=== PATIENT | male | born 1945 ===

== ENCOUNTER 2025-01-23 11:45 | Inpatient (IN) | payer BC ==
[2025-01-23 12:05] LABS: BASOPHILS ABSOLUTE AUTO 0.04 K/uL (0.00-0.20); BASOPHILS PERCENT AUTO 0.7 % (0.0-2.0); EOSINOPHILS PERCENT AUTO 3.7 % (0.0-5.0); HEMATOCRIT 27.2 % (39.0-49.0); HEMOGLOBIN 8.7 g/dL (13.1-16.8); IMMATURE GRAN ABSOLUTE AUTO 0.01 10^3/uL (0.00-0.04); IMMATURE GRAN PERCENT AUTO 0.2 % (0.0-0.4); LYMPHOCYTES ABSOLUTE AUTO 0.84 K/uL (0.50-3.50); LYMPHOCYTES PERCENT AUTO 15.6 % (10.0-50.0); MEAN CORPUSCULAR HEMOGLOBIN 31.8 pg (28.2-33.3); MEAN CORPUSCULAR VOLUME 99.3 fL (84.0-98.0); MONOCYTES ABSOLUTE AUTO 0.44 K/uL (0.00-1.00); MONOCYTES PERCENT AUTO 8.2 % (2.0-14.0); NEUTROPHILS ABSOLUTE AUTO 3.84 K/uL (1.40-7.00); NEUTROPHILS PERCENT AUTO 71.6 % (45.0-80.0); PLATELET COUNT,PLT 151 K/uL (150-350); RED BLOOD CELL COUNT 2.74 M/uL (4.33-5.41); RED CELL DISTRIBUTION WIDTH 12.5 % (11.2-14.1); WHITE BLOOD CELL COUNT,WBC 5.4 K/uL (4.0-10.2)
[2025-01-23 12:08] LABS: O2 DELIVERY DEVICE NASAL CANNULA; O2 SATURATION VENOUS 93 %; PCO2 VENOUS 38 mmHG (41-51); PH,VENOUS 7.51 (7.31-7.41); PO2 VENOUS 60 mmHG
[2025-01-23 12:09] LABS: BASE EXCESS VENOUS 7 mmol/L ((-2)-3); BICARBONATE,VENOUS 30 mmol/L (23-28)
[2025-01-23] MEDS: Albuterol/Ipratropium 3.0-0.5 MG/3 ML Neb Soln NEB ONE (12:13)
[2025-01-23] MEDS: Furosemide 40 MG/4 ML VIAL IVPUSH ONE (12:14)
[2025-01-23 12:35] LABS: LACTIC ACID 0.6 mmol/L (0.4-2.0)
[2025-01-23 12:52] LABS: ALBUMIN 3.3 g/dL (3.4-5.0); ANION GAP 12.4 meq/L (7-15); BILIRUBIN TOTAL 0.7 mg/dL (0.2-1.0); CALCIUM 9.1 mg/dL (8.5-10.1); CARBON DIOXIDE,CO2 24.6 mmol/L (21.0-32.0); CREATININE 2.22 mg/dL (0.51-1.17); EST CRCL DRUG DOSING (CG) 24.75 mL/min; POTASSIUM,K 4.3 mmol/L (3.5-5.1)
[2025-01-23] MEDS ORDERED: Ondansetron 4 MG Tab.DIS PO PRN (13:43)
[2025-01-23] MEDS ORDERED: Acetaminophen 325 MG Tab PO PRN (13:43)
[2025-01-23] MEDS ORDERED: Bisacodyl 5 MG Tab PO PRN (13:43)
[2025-01-23] MEDS ORDERED: traMADol 50 MG Tab PO PRN (13:43)
[2025-01-23] MEDS: Albuterol/Ipratropium 3.0-0.5 MG/3 ML Neb Soln NEB SCH (14:16)
[2025-01-23] MEDS: Benzonatate 100 MG Cap PO PRN (14:16)
[2025-01-23] MEDS: cefTRIAXone 1 GM Vial IVPUSH SCH (14:16)
[2025-01-23] MEDS: Azithromycin 500 MG in Sodium Chloride 0.9% 250 ML IV SCH (14:39)
[2025-01-23] MEDS: glipiZIDE 5 MG Tab PO SCH (17:31)
[2025-01-23] MEDS: Carvedilol 25 MG Tab PO SCH (17:32)
[2025-01-23] MEDS: Sodium Bicarbonate 650 MG Tab PO SCH (17:53)
[2025-01-24] MEDS: Temazepam 15 MG Cap PO PRN (00:05)
[2025-01-24 07:19] LABS: BASOPHILS ABSOLUTE AUTO 0.05 K/uL (0.00-0.20); BASOPHILS PERCENT AUTO 0.8 % (0.0-2.0); EOSINOPHILS ABSOLUTE AUTO 0.23 K/uL (0.00-0.50); EOSINOPHILS PERCENT AUTO 3.8 % (0.0-5.0); HEMOGLOBIN 8.2 g/dL (13.1-16.8); IMMATURE GRAN ABSOLUTE AUTO 0.01 10^3/uL (0.00-0.04); IMMATURE GRAN PERCENT AUTO 0.2 % (0.0-0.4); LYMPHOCYTES ABSOLUTE AUTO 1.03 K/uL (0.50-3.50); LYMPHOCYTES PERCENT AUTO 16.8 % (10.0-50.0); MEAN CORPUSCULAR HEMOGLOBIN 30.9 pg (28.2-33.3); MEAN CORPUSCULAR HGB CONC 31.5 g/dL (31.7-36.0); MEAN CORPUSCULAR VOLUME 98.1 fL (84.0-98.0); MONOCYTES ABSOLUTE AUTO 0.48 K/uL (0.00-1.00); MONOCYTES PERCENT AUTO 7.8 % (2.0-14.0); NEUTROPHILS ABSOLUTE AUTO 4.33 K/uL (1.40-7.00); NEUTROPHILS PERCENT AUTO 70.6 % (45.0-80.0); PLATELET COUNT,PLT 162 K/uL (150-350); RED BLOOD CELL COUNT 2.65 M/uL (4.33-5.41); RED CELL DISTRIBUTION WIDTH 12.5 % (11.2-14.1); WHITE BLOOD CELL COUNT,WBC 6.1 K/uL (4.0-10.2)
[2025-01-24 07:41] LABS: ANION GAP 6.8 meq/L (7-15); CARBON DIOXIDE,CO2 30.2 mmol/L (21.0-32.0); CREATININE 2.16 mg/dL (0.51-1.17); EST CRCL DRUG DOSING (CG) 25.43 mL/min; POTASSIUM,K 3.9 mmol/L (3.5-5.1)
[2025-01-24] MEDS: Clopidogrel 75 MG Tab PO SCH (08:07)
[2025-01-24] MEDS: Ferrous Sulfate 325 MG Tab PO SCH (08:08)
[2025-01-24] MEDS: Aspirin 81 MG Tab.EC PO SCH (08:09)
[2025-01-24] MEDS: amLODIPine 5 MG Tab PO SCH (08:10)
[2025-01-24] MEDS: atorvaSTATin 40 MG Tab PO SCH (08:10)
[2025-01-24] MEDS: Furosemide 40 MG/4 ML VIAL IVPUSH SCH (08:14)
[2025-01-24] MEDS: Fluticasone NASAL Spray 16 GM Bottle NASBOTH SCH (08:26)
[2025-01-24] MEDS ORDERED: Albuterol/Ipratropium 3.0-0.5 MG/3 ML Neb Soln NEB PRN (11:27)
[2025-01-24] MEDS: predniSONE 20 MG Tab PO ONE (13:00)
[2025-01-24 13:19] VITALS: BP 140/53; PULSE 58
[2025-01-24] MEDS ORDERED: Furosemide 40 MG/4 ML VIAL IVPUSH ONE (18:00)
== END 2025-01-24 13:08 | DRG 133 ==
LOC: LL.ED 11:45 → LL.MS 12:45
PROVIDERS: ADMIT Emergency Medicine; ATTEND Emergency Medicine
DX: J96.01 Acute respiratory failure with hypoxia (principal); J30.9 Allergic rhinitis, unspecified; H54.7 Unspecified visual loss; Z66 Do not resuscitate; E11.319 Type 2 diabetes mellitus with unspecified diabetic retinopathy without macular edema; Z51.5 Encounter for palliative care; I25.10 Atherosclerotic heart disease of native coronary artery without angina pectoris; E78.00 Pure hypercholesterolemia, unspecified; I13.0 Hypertensive heart and chronic kidney disease with heart failure and stage 1 through stage 4 chronic kidney disease, or unspecified chronic kidney disease; N18.2 Chronic kidney disease, stage 2 (mild); I25.2 Old myocardial infarction; I73.9 Peripheral vascular disease, unspecified; K59.09 Other constipation; G30.9 Alzheimer's disease, unspecified; F02.80 Dementia in other diseases classified elsewhere, unspecified severity, without behavioral disturbance, psychotic disturbance, mood disturbance, and anxiety; F32.A Depression, unspecified; E11.22 Type 2 diabetes mellitus with diabetic chronic kidney disease; E66.9 Obesity, unspecified; D64.9 Anemia, unspecified; J18.9 Pneumonia, unspecified organism; M19.90 Unspecified osteoarthritis, unspecified site; I50.22 Chronic systolic (congestive) heart failure; Z79.52 Long term (current) use of systemic steroids; Z79.82 Long term (current) use of aspirin; Z68.25 Body mass index [BMI] 25.0-25.9, adult; Z79.899 Other long term (current) drug therapy; Z95.0 Presence of cardiac pacemaker
CPT/HCPCS: 36415; 71045; 80048; 80053; 82803; 83605; 83735; 83880; 84484; 85025; 85379; 93005; 93010; 94640; 96374; 99285-25; A9270-GY; J0456; J0696; J1938; J7050; J7512